=== PATIENT | female | born 1955 | race Caucasian/White ===

== ENCOUNTER 2019-02-27 06:27 | Day surgery (SDC) | payer BC ==
[2019-02-27] MEDS ORDERED: LIDOCAINE 2% (SDV) 5 ML INJ (07:30)
[2019-02-27] MEDS ORDERED: PROPOFOL 40 ML (07:30)
[2019-02-27] MEDS ORDERED: ONDANSETRON 4 MG INJ IV (07:30)
== END 2019-02-27 10:38 | disposition home or self-care (01) ==
LOC: GIL 06:27
DX: Z12.11 Encounter for screening for malignant neoplasm of colon (principal); D12.0 Benign neoplasm of cecum; K57.30 Diverticulosis of large intestine without perforation or abscess without bleeding; I10 Essential (primary) hypertension; E78.5 Hyperlipidemia, unspecified; E11.9 Type 2 diabetes mellitus without complications
CPT/HCPCS: 45380; 82962; 88305